=== PATIENT | female | born 2000 | race Caucasian/White ===

== ENCOUNTER 2022-08-07 11:59 | Outpatient (CLI) | payer OTHER ==
[2022-08-07 17:45] LABS: BASOPHILS # (AUTO) 0.1 10^3/uL (0.0-0.1); BASOPHILS % (AUTO) 0.7 %; EOSINOPHILS # (AUTO) 0.2 10^3/uL (0.0-0.7); EOSINOPHILS % (AUTO) 2.3 %; HCT - HEMATOCRIT 38.5 % (37.0-47.0); HGB - HEMOGLOBIN 11.7 g/dL (12.0-16.0); LYMPHOCYTES # (AUTO) 2.4 10^3/uL (1.5-3.5); LYMPHOCYTES % (AUTO) 34.5 %; MEAN CORPUSCULAR HEMOGLOBIN 24.8 pg (27.0-31.0); MEAN CORPUSCULAR HGB CONC 30.4 g/dL (32.0-36.0); MEAN CORPUSCULAR VOLUME 81.7 fL (81.0-99.0); MEAN PLATELET VOLUME 9.1 fL (7.9-10.8); MONOCYTES # (AUTO) 0.5 10^3/uL (0.0-1.0); MONOCYTES % (AUTO) 7.2 %; NEUTROPHILS # (AUTO) 3.9 10^3/uL (1.5-6.6); PLT - PLATELET COUNT 461 10^3/uL (130-450); RED BLOOD COUNT 4.71 10^6/uL (4.20-5.40); RED CELL DISTRIBUTION WIDTH 13.7 % (12.0-15.0); WHITE BLOOD COUNT 7.1 x10^3/uL (4.8-10.8)
[2022-08-07 18:11] LABS: % IRON SATURATION 6 % (20-50); ALBUMIN 3.8 g/dL (3.2-5.5); ALBUMIN/GLOBULIN RATIO 0.9 (1.0-2.2); ALKALINE PHOSPHATASE 45 IU/L (42-121); ALT ALANINE AMINOTRANSFERASE 10 IU/L (10-60); AST ASPARTATE AMINOTRANSFERASE 18 IU/L (10-42); BILIRUBIN,TOTAL 0.5 mg/dL (0.2-1.0); BUN - BLOOD UREA NITROGEN 12 mg/dL (6-20); CALCIUM 9.3 mg/dL (8.5-10.3); CARBON DIOXIDE - CO2 26 mmol/L (21-32); CHLORIDE 101 mmol/L (101-111); CHOL/HDL RATIO 2.9 (<4.4); CHOLESTEROL 178 mg/dL; CREATININE 0.8 mg/dL (0.4-1.0); CRP - C-REACTIVE PROTEIN 1.4 mg/dL (0-1.0); GFR - MDRD 90 (>89); GLUCOSE 89 mg/dL (70-100); HDL CHOLESTEROL 62 mg/dL; IRON 25 ug/dL (28-170); LDL CHOLESTEROL,CALCULATED 108 mg/dL; LDL/HDL RATIO 1.7 (<4.4); POTASSIUM 4.2 mmol/L (3.5-5.0); SODIUM 134 mmol/L (135-145); TOTAL IRON BINDING CAPACITY 413 ug/dL (250-450); TRANSFERRIN 295 mg/dL (192-382); TRIGLYCERIDES 40 mg/dL; VLDL CHOLESTEROL 8 mg/dL
[2022-08-07 18:20] LABS: THYROID STIMULATING HORMONE 2.24 uIU/mL (0.34-5.60)
[2022-08-07 18:24] LABS: FERRITIN 11.4 ng/mL (11.0-306.8)
== END 2022-08-07 12:00 | disposition home or self-care (01) ==
LOC: LAB.N 11:59
PROVIDERS: ATTEND Nurse Practitioner
DX: D64.9 Anemia, unspecified (principal); R53.83 Other fatigue; R76.8 Other specified abnormal immunological findings in serum; Z13.220 Encounter for screening for lipoid disorders; M25.561 Pain in right knee
CPT/HCPCS: 36415; 80053; 80061; 82728; 83540; 83721; 84443; 84466; 85025; 85651; 86140

== ENCOUNTER 2022-09-13 08:00 | Outpatient (CLI) | payer OTHER ==
[2022-09-13 15:09] LABS: BILIRUBIN,URINE NEGATIVE (NEGATIVE); GLUCOSE, URINE (UA) NEGATIVE (NEGATIVE); KETONES,URINE (UA) TRACE mg/dL (NEGATIVE); LEUKOCYTE ESTERASE, URINE NEGATIVE (NEGATIVE); NITRITE,URINE NEGATIVE (NEGATIVE); OCCULT BLOOD,URINE NEGATIVE (NEGATIVE); PH,URINE 6.5 PH (5.0-7.5); PROTEIN,URINE NEGATIVE (NEGATIVE); UROBILINOGEN,URINE 0.2 (NORMAL) E.U./dL (NORMAL)
[2022-09-13 15:18] LABS: CLARITY,URINE CLEAR (CLEAR)
[2022-09-13 15:30] LABS: RBC,URINE 0-5 /HPF (0-5); SQUAMOUS EPITHELIAL CELL,UR FEW Squamous (<= Few); WBC,URINE 0-3 /HPF (0-5)
[2022-09-13 15:31] LABS: BACTERIA,URINE Rare /HPF (None Seen); MUCUS,URINE Moderate Strands
== END 2022-09-13 23:59 | disposition home or self-care (01) ==
LOC: LAB.WC 08:00
PROVIDERS: ATTEND Obstetrics & Gynecology
DX: Z34.90 Encounter for supervision of normal pregnancy, unspecified, unspecified trimester (principal)
CPT/HCPCS: 81001; 87086

== ENCOUNTER 2022-09-21 10:49 | Outpatient (CLI) | payer OTHER ==
--- NOTE | 2022-09-22 10:11 | Ultrasound Report ---
PROCEDURE: OB First Trimester w/TV INDICATIONS: POSITIVE TEST OUTSIDE/PRIOR DATING DATA: Last menstrual period (LMP): 07/27/2022. LMP-based estimated date of delivery (ZAN): 05/03/2023. First dating scan (date and location): Today 09/21/22 Estimated date of delivery (ZAN) from first dating scan: 05/06/2023. TECHNIQUE: Real-time scanning was performed of the fetus and maternal pelvic organs, with image documentation. Endovaginal scanning was also performed to better visualize the fetus and maternal ovaries. COMPARISON: None FINDINGS: Intrauterine is present with heart rate 150 bpm. Cervical length is 4.7 cm Acorn-rump length is 1.34 cm corresponding to an ultrasound age of 7 weeks and 4 days. Or focal fluid is seen adjacent to the left ovary measuring up to 2.5 cm. IMPRESSION: Single living intrauterine at an ultrasound age of 7 weeks and 4 days. Subchorionic bleed m easuring 30 x 30 x 14 mm. Suspected left corpus luteum and perineal left adnexal fluid measuring up t o 2.5 cm. Attention on follow-up second trimester anatomy scan. Reviewed by: Branden Gu MD on 09/22/2022 10:10 AM PST Approved by: Branden Gu MD on 09/22/2022 10:10 AM PST Station ID: [id number]
== END 2022-09-21 10:50 | disposition home or self-care (01) ==
LOC: DI 10:49
PROVIDERS: ATTEND Obstetrics & Gynecology
DX: O20.8 Other hemorrhage in early pregnancy (principal); Z3A.01 Less than 8 weeks gestation of pregnancy

== ENCOUNTER 2022-10-24 12:21 | Outpatient (CLI) | payer OTHER ==
[2022-10-24 12:49] LABS: BASOPHILS % (AUTO) 0.3 %; EOSINOPHILS # (AUTO) 0.1 10^3/uL (0.0-0.7); EOSINOPHILS % (AUTO) 0.8 %; HCT - HEMATOCRIT 35.1 % (37.0-47.0); HGB - HEMOGLOBIN 11.1 g/dL (12.0-16.0); LYMPHOCYTES # (AUTO) 2.4 10^3/uL (1.5-3.5); LYMPHOCYTES % (AUTO) 27.7 %; MEAN CORPUSCULAR HEMOGLOBIN 24.5 pg (27.0-31.0); MEAN CORPUSCULAR HGB CONC 31.6 g/dL (32.0-36.0); MEAN CORPUSCULAR VOLUME 77.5 fL (81.0-99.0); MEAN PLATELET VOLUME 8.4 fL (7.9-10.8); MONOCYTES # (AUTO) 0.7 10^3/uL (0.0-1.0); MONOCYTES % (AUTO) 7.4 %; NEUTROPHILS # (AUTO) 5.6 10^3/uL (1.5-6.6); NEUTROPHILS % (AUTO) 63.2 %; PLT - PLATELET COUNT 342 10^3/uL (130-450); RED BLOOD COUNT 4.53 10^6/uL (4.20-5.40); RED CELL DISTRIBUTION WIDTH 15.6 % (12.0-15.0); WHITE BLOOD COUNT 8.8 x10^3/uL (4.8-10.8)
[2022-10-25 05:11] LABS: HBsAG SCREEN Negative (Negative)
[2022-10-25 07:10] LABS: RPR Non Reactive (Non Reactive); VARICELLA-ZOSTER AB IGG <135 index (Immune >165)
[2022-10-25 10:13] LABS: HCV AB Non Reactive (Non Reactive); HIV SCREEN 4TH GENERATION Non Reactive (Non Reactive)
== END 2022-10-24 12:22 | disposition home or self-care (01) ==
LOC: LAB 12:21
PROVIDERS: ATTEND Obstetrics & Gynecology
DX: Z34.90 Encounter for supervision of normal pregnancy, unspecified, unspecified trimester (principal)
CPT/HCPCS: 36415; 85025; 86592; 86762; 86787; 86803; 86850; 86900; 86901; 87340; 87389

== ENCOUNTER 2022-12-18 14:35 | Outpatient (CLI) | payer OTHER ==
--- NOTE | 2022-12-18 17:04 | Ultrasound Report ---
PROCEDURE: OB Detailed Eval INDICATIONS: SUPERVISION OF OUTSIDE/PRIOR DATING DATA: Last menstrual period (LMP): 07/27/2022. LMP-based estimated date of delivery (ZAN): 05/03/2023. First dating scan (date and location): 09/21/2022. Estimated date of delivery (ZAN) from first dating scan: 05/06/2023. The below data below was generated using the ultrasound ZAN of 05/06/2023 TECHNIQUE: Real-time scanning was performed of the fetus, with image documentation and biometric measurements. COMPARISON: OB ultrasound 10/09/2022 FINDINGS: General: A single living intrauterine gestation is present. Presentation: For Placenta: Placental position is posterior, without previa. Amniotic fluid index: 13 point cm, within normal limits for gestational age. heart rate: 144 beats per minute. Maternal cervical canal: 4.4 cm long; normal length is 2.5 cm or more. biometrics: Biparietal diameter: 4.6 cm 19 weeks 6 days Head circumference: 17.5 cm 20 weeks 0 days Abdominal circumference: 15.4 cm 20 weeks 4 days Femur length: 3.2 cm 19 weeks 6 days Estimated gestational age from initial scan: 20 weeks 1 day Composite gestational age from present scan: 20 weeks 1 day Estimated weight and percentile: 330 g 48th percentile Measurement variability in biometric dating: +/- 10 days from 12-20 weeks gestation, +/- 2 weeks from 20-30 weeks gestation, +/- 3 weeks at 30 weeks gestation or later. Anatomic survey: Neuro: Ventricles are normal at less than 10 mm. Cisterna magna is normal at 3-11 mm. Cerebellum i s normal in size and morphology. Nuchal skin fold: Not well evaluated Face: Nose and lips, facial profile are not well seen. Spine: No evidence for spina bifida. Heart: 4-chambered heart and ventricular outflow tracts are not well seen. Diaphragm: Diaphragm is intact. Stomach: Left-sided stomach is present. Kidneys: No hydronephrosis. Normal is less than 5 mm in 2nd trimester, less than 7 mm in 3rd trimester. Cord: 3 vessel cord has orthotopic insertion. Bladder: Normal in size. Extremities: All 4 extremities are visualized. Left paraovarian cyst is unchanged IMPRESSION: Single live intrauterine with ultrasound gestational age today of 20 weeks 1 day. heart, outflow tracts as well as facial features are not well seen, in addition to nuchal skin fold. Recommend follow-up ultrasound for further evaluation. Reviewed by: Mariana Zaragoza MD on 12/18/2022 5:03 PM PDT Approved by: Mariana Zaragoza MD on 12/18/2022 5:03 PM PDT Station ID: [id number]
== END 2022-12-18 14:36 | disposition home or self-care (01) ==
LOC: DI 14:35
PROVIDERS: ATTEND Obstetrics & Gynecology
DX: Z34.92 Encounter for supervision of normal pregnancy, unspecified, second trimester (principal)

== ENCOUNTER 2023-01-24 19:15 | Outpatient (CLI) | payer OTHER ==
--- NOTE | 2023-01-25 11:10 | Ultrasound Report ---
PROCEDURE: OB F/U or Repeat INDICATIONS: SUPERVISION OF . heart and outflow tracts and facial features were not w ell seen on the previous study OUTSIDE/PRIOR DATING DATA: Last menstrual period (LMP): 07/27/2022. LMP-based estimated date of delivery (ZAN): 05/03/2023. First dating scan (date and location): 09/21/22. Estimated date of delivery (ZAN) from first dating scan: 05/06/2023. The below data below was generated using the ultrasound ZAN of 05/06/2023 TECHNIQUE: Real-time scanning was performed of the fetus, with image documentation and biometric measurements. Endovaginal scanning: Not performed COMPARISON: Second trimester anatomy ultrasound dated 12/18/2022. FINDINGS: General: A single living intrauterine gestation is present. Presentation: Vertex Placenta: Placental position is posterior, without previa. Amniotic fluid index: 11.2 cm, within normal limits for gestational age. heart rate: 132 beats per minute. Maternal cervical canal: 3.3 cm long; normal length is 2.5 cm or more. Estimated gestational age from initial scan: 25 weeks 3 days Other: profile and nose and lips are within normal limits. Four-chamber view and LVOT within no rmal limits. RVOT suboptimally evaluated secondary to lie. However, and is likely within normal limits. IMPRESSION: 1. Living late second trimester intrauterine with no sonographic evidence of complications. 2. Patient presents to complete the anatomy study. RVOT suboptimally evaluated, but likely with in normal limits. Other structures are well-visualized, and within normal limits. Reviewed by: Jorge Ellison MD on 01/25/2023 11:09 AM PDT Approved by: Jorge Ellison MD on 01/25/2023 11:09 AM PDT Station ID: [id number]
== END 2023-01-24 19:16 | disposition home or self-care (01) ==
LOC: DI 19:15
PROVIDERS: ATTEND Obstetrics & Gynecology
DX: Z34.92 Encounter for supervision of normal pregnancy, unspecified, second trimester (principal)

== ENCOUNTER 2023-02-12 12:58 | Outpatient (CLI) | payer OTHER ==
[2023-02-12 17:43] LABS: HCT - HEMATOCRIT 34.2 % (37.0-47.0); HGB - HEMOGLOBIN 10.7 g/dL (12.0-16.0); MEAN CORPUSCULAR HEMOGLOBIN 26.8 pg (27.0-31.0); MEAN CORPUSCULAR HGB CONC 31.3 g/dL (32.0-36.0); MEAN CORPUSCULAR VOLUME 85.5 fL (81.0-99.0); MEAN PLATELET VOLUME 9.3 fL (7.9-10.8); RED CELL DISTRIBUTION WIDTH 16.1 % (12.0-15.0); WHITE BLOOD COUNT 12.7 x10^3/uL (4.8-10.8)
== END 2023-02-12 12:59 | disposition home or self-care (01) ==
LOC: LAB.N 12:58
PROVIDERS: ATTEND Obstetrics & Gynecology
DX: Z34.90 Encounter for supervision of normal pregnancy, unspecified, unspecified trimester (principal)
CPT/HCPCS: 36415; 82950; 85027

== ENCOUNTER 2023-02-15 10:39 | Outpatient (CLI) | payer OTHER | END 2023-02-15 10:40 | disposition home or self-care (01) | LOC: LAB 10:39 | PROVIDERS: ATTEND Obstetrics & Gynecology | DX: D64.9 Anemia, unspecified (principal) | CPT/HCPCS: 36415; 82728 ==

== ENCOUNTER 2023-02-19 17:59 | Emergency (ER) | payer OTHER ==
--- NOTE | 2023-02-19 18:06 | ED Physician Documentation ---
PD HPI ABD PAIN - Stated complaint Stated Complaint: DIZZY - Chief complaint Chief Complaint: Cardiac - History obtained from History obtained from: Patient - Additional information Additional information: She is a G1 at 30 weeks . Last week in the office her blood pressure was high and they were going to start monitoring it. Today she developed cold sweats, headache, and dizziness. She went to urgent care and subsequently went over to labor and delivery where baby looked okay on nonstress testing and referred here for further evaluation and treatment. There was a concern for bradycardia over there. PD PAST MEDICAL HISTORY - Allergies Allergies/Adverse Reactions: Allergies Allergy/AdvReac Type Severity Reaction Status Date / Time No Known Drug Allergies Allergy Verified 02/19/23 18:04 PD ED PE NORMAL - Vitals Vital signs reviewed: Yes - General General: Alert and oriented X 3, No acute distress, Well developed/nourished - HEENT HEENT: PERRL, EOMI - Neck Neck: Supple, no meningeal sign, No bony TTP - Cardiac Cardiac: No murmur, Other (Frequent PVCs on the monitor, with some irregularity on auscultation) - Respiratory Respiratory: No respiratory distress, Clear bilaterally - Abdomen Abdomen: Non tender - Neuro Neuro: Alert and oriented X 3, Normal speech Eye Opening: Spontaneous Motor: Obeys Commands Verbal: Oriented GCS Score: 15 - Psych Psych: Normal mood, Normal affect Results - Vitals Vitals: Vital Signs - 24 hr 02/19/23 02/19/23 02/19/23 18:01 18:08 18:27 Temperature 36.6 C Heart Rate 83 85 80 Respiratory 23 20 22 Rate Blood Pressure 136/95 H 134/90 H 118/69 O2 Saturation 99 99 97 02/19/23 18:43 Temperature Heart Rate 96 Respiratory 20 Rate Blood Pressure 103/60 O2 Saturation 97 Oxygen O2 Source Room air - Labs Labs: Laboratory Tests 02/19/23 02/19/23 18:01 18:01 WBC 13.1 H RBC 4.36 Hgb 11.7 L Hct 37.4 MCV 85.8 MCH 26.8 L MCHC 31.3 L RDW 15.5 H Plt Count 301 MPV 9.1 Neut # (Auto) 8.5 H Lymph # (Auto) 2.7 [place] # (Auto) 1.1 H Eos # (Auto) 0.1 Baso # (Auto) 0.1 Absolute Nucleated RBC 0.02 Nucleated RBC % 0.2 Sodium 134 L Potassium 4.0 Chloride 105 Carbon Dioxide 22 Anion Gap 7.0 BUN 10 Creatinine 0.6 Estimated GFR (MDRD) 124 Glucose 80 Calcium 8.9 Magnesium 2.0 Total Bilirubin 0.3 AST 23 ALT 15 Alkaline Phosphatase 42 Total Protein 7.1 Albumin 3.2 Globulin 3.9 Albumin/Globulin Ratio 0.8 L PD Medical Decision Making - ED course ED course: Blood pressure in the department was initially high but trended down and became 103/60 at the time of disposition. Her work-up was negative with CBC showing leukocytosis appropriate in and unremarkable CMP. Given the PVCs recommended she follow-up with her OB and consideration for echocardiography. Departure - Departure Disposition: Home, Self Care Clinical Impression: PVCs (premature ventricular contractions) Condition: Good Record reviewed to determine appropriate education?: Yes Instructions: Premature Ventricular Contract About Comments: You are seen today for a concerning episode, your blood pressure did trend down over time to 103/60 so I do not think it is directly necessarily related to your blood pressure. We also noted that you had frequent premature ventricular contractions, these are early beats of the heart which are generally benign but recommend you follow-up with Dr. Huynh on for blood pressure check and he may consider referring you for an echocardiogram. Return if worsening.
[2023-02-19 18:16] LABS: BASOPHILS # (AUTO) 0.1 10^3/uL (0.0-0.1); BASOPHILS % (AUTO) 0.8 %; EOSINOPHILS # (AUTO) 0.1 10^3/uL (0.0-0.7); EOSINOPHILS % (AUTO) 0.5 %; HCT - HEMATOCRIT 37.4 % (37.0-47.0); HGB - HEMOGLOBIN 11.7 g/dL (12.0-16.0); LYMPHOCYTES # (AUTO) 2.7 10^3/uL (1.5-3.5); LYMPHOCYTES % (AUTO) 20.4 %; MEAN CORPUSCULAR HEMOGLOBIN 26.8 pg (27.0-31.0); MEAN CORPUSCULAR HGB CONC 31.3 g/dL (32.0-36.0); MEAN CORPUSCULAR VOLUME 85.8 fL (81.0-99.0); MEAN PLATELET VOLUME 9.1 fL (7.9-10.8); MONOCYTES # (AUTO) 1.1 10^3/uL (0.0-1.0); MONOCYTES % (AUTO) 8.3 %; NEUTROPHILS # (AUTO) 8.5 10^3/uL (1.5-6.6); NEUTROPHILS % (AUTO) 65.2 %; NRBC ABSOLUTE COUNT (AUTO) 0.02 x10^3/uL; NUCLEATED RED BLOOD CELLS AUTO 0.2 /100WBC; PLT - PLATELET COUNT 301 10^3/uL (130-450); RED BLOOD COUNT 4.36 10^6/uL (4.20-5.40); RED CELL DISTRIBUTION WIDTH 15.5 % (12.0-15.0); WHITE BLOOD COUNT 13.1 x10^3/uL (4.8-10.8)
[2023-02-19] MEDS: PROCHLORPERAZINE 10 MG/2 ML VIAL IVP STA (18:16)
[2023-02-19 18:28] LABS: ALBUMIN 3.2 g/dL (3.2-5.5); ALBUMIN/GLOBULIN RATIO 0.8 (1.0-2.2); BILIRUBIN,TOTAL 0.3 mg/dL (0.2-1.0); CALCIUM 8.9 mg/dL (8.5-10.3); CREATININE 0.6 mg/dL (0.4-1.0); TOTAL PROTEIN 7.1 g/dL (6.7-8.2)
[2023-02-19 18:43] VITALS: BP 103/60
== END 2023-02-19 19:00 | disposition home or self-care (01) ==
LOC: ED 17:59
DX: O36.5930 Maternal care for other known or suspected poor fetal growth, third trimester, not applicable or unspecified (principal); Z3A.30 30 weeks gestation of pregnancy; I49.3 Ventricular premature depolarization
CPT/HCPCS: 36415; 80053; 83735; 85025; 96374; 99283

== ENCOUNTER 2023-02-21 15:04 | Outpatient (CLI) | payer OTHER ==
--- NOTE | 2023-02-21 16:43 | Ultrasound Report ---
PROCEDURE: OB F/U or Repeat INDICATIONS: UTERINE SIZE DATE DISCREPENCY OUTSIDE/PRIOR DATING DATA: Last menstrual period (LMP): 07/27/2022. LMP-based estimated date of delivery (ZAN): 05/03/2023. First dating scan (date and location): 09/21/2022. Estimated date of delivery (ZAN) from first dating scan: 05/06/2023. The below data below was generated using the ultrasound ZAN of 05/06/2023 TECHNIQUE: Real-time scanning was performed of the fetus, with image documentation and biometric measurements. Endovaginal scanning: Not performed. COMPARISON: None. FINDINGS: General: A single living intrauterine gestation is present. Presentation: Vertex Placenta: Placental position is posterior, without previa. Amniotic fluid index: 13.9 cm, 43rd percentile for gestational age. heart rate: 148 beats per minute. Maternal cervical canal: 5.4 cm long; normal length is 2.5 cm or more. biometrics: Biparietal diameter: 7.1 cm, 28 weeks 3 days Head circumference: 27.5 cm, 30 weeks 1 day Abdominal circumference: 25.3 cm, 29 weeks 3 days Femur length: 5.6 cm, 29 weeks 3 days Estimated gestational age from initial scan: 29 weeks 3 days Composite gestational age from present scan: 29 weeks 3 days Estimated weight and percentile: 1391 g, 39th percentile Measurement variability in biometric dating: +/- 10 days from 12-20 weeks gestation, +/- 2 weeks from 20-30 weeks gestation, +/- 3 weeks at 30 weeks gestation or more. Other: Not applicable. IMPRESSION: Single living intrauterine at 29 weeks 3 days, ZAN of 05/06/2023. Estimated weight of 1391 g, 39th percentile. Reviewed by: Zack Sanchez on 02/21/2023 4:41 PM PDT Approved by: Zack Sanchez on 02/21/2023 4:41 PM PDT Station ID: [id number]
== END 2023-02-21 15:05 | disposition home or self-care (01) ==
LOC: DI 15:04
PROVIDERS: ATTEND Obstetrics & Gynecology
DX: O26.843 Uterine size-date discrepancy, third trimester (principal); Z3A.29 29 weeks gestation of pregnancy

== ENCOUNTER 2023-03-21 11:05 | Emergency (ER) | payer OTHER ==
[2023-03-21] MEDS ORDERED: NIFEdipine ER 30 MG TABLET PO STA (11:44)
--- NOTE | 2023-03-21 11:45 | ED Physician Documentation ---
History of Present Illness - Stated complaint Stated Complaint: SWEATING/BLURRED VISION - Chief complaint Chief Complaint: Neuro - Additonal information Additional information: 22-year-old female G1, P0 presents to the emergency department for evaluation of near syncope. 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 There was no lapse in consciousness. She is also been having palpitations. heart rate at the bedside was 156. No loss of fluids or vaginal bleeding. Was seen several weeks ago for similar and has an echocardiogram pending at [facility] for 04 April. Patient is followed by Dr. Huynh with our OB group. Meds: Sulfasalazine, vitamins, folic acid. Past medical history is most significant for arthritis only. Patient is continuing to have movement. Patient's blood pressure in triage was initially 138/82. When I was evaluating the patient in the room while supine and still her blood pressure was 146/108. Review of Systems Constitutional: denies: Fever Eyes: reports: Reviewed and negative Ears: reports: Reviewed and negative Cardiac: reports: Palpitations Respiratory: reports: Reviewed and negative GI: reports: Reviewed and negative : reports: Reviewed and negative Skin: reports: Reviewed and negative Musculoskeletal: reports: Reviewed and negative Neurologic: reports: Near syncope, Headache PD PAST MEDICAL HISTORY - Past Medical History Past Medical History: Yes Musculoskeletal: Rheumatoid arthritis - Past Surgical History Past Surgical History: Yes Ortho: Other - Present Medications Home Medications: Ambulatory Orders Medication Instructions Recorded Confirmed Folic Acid 1 mg PO DAILY 03/21/23 03/21/23 Pnv No.95/Ferrous Fum/Folic AC 1 each PO DAILY 03/21/23 03/21/23 [ Tablet] sulfaSALAzine [Sulfasalazine] 1,500 mg PO DAILY 03/21/23 03/21/23 - Allergies Allergies/Adverse Reactions: Allergies Allergy/AdvReac Type Severity Reaction Status Date / Time No Known Drug Allergies Allergy Verified 03/21/23 11:12 - Social History Does the pt smoke?: No Smoking Status: Never smoker Does the pt drink ETOH?: No Does the pt have substance abuse?: No - Immunizations Immunizations are current?: No PD ED PE NORMAL - General General: Alert and oriented X 3, No acute distress, Well developed/nourished - HEENT HEENT: Atraumatic - Cardiac Cardiac: RRR, No murmur, Strong equal pulses, Other (Sinus rhythm on the monitor with frequent PVCs.) - Respiratory Respiratory: No respiratory distress - Abdomen Abdomen: Normal bowel sounds, Soft, Non tender (Palpable uterus above the level of the umbilicus.) - Back Back: No CVA TTP - Derm Derm: Normal color, Warm and dry, No rash - Extremities Extremities: No deformity, Normal ROM s pain, No edema - Neuro Neuro: Alert and oriented X 3, 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 No clonus.) Eye Opening: Spontaneous Motor: Obeys Commands Verbal: Oriented GCS Score: 15 Results - Vitals Vitals: Vital Signs - 24 hr 03/21/23 03/21/23 03/21/23 11:06 11:38 11:39 Temperature 36.8 C Heart Rate 90 95 Respiratory 18 Rate Blood Pressure 131/78 H 146/101 H 138/82 H O2 Saturation 100 03/21/23 03/21/23 03/21/23 11:48 11:53 12:05 Temperature 37.0 C Heart Rate 102 H 106 H Respiratory 18 Rate Blood Pressure 137/80 H 133/74 H 120/76 O2 Saturation 99 03/21/23 03/21/23 03/21/23 12:26 12:45 13:00 Temperature Heart Rate 89 92 90 Respiratory 15 23 22 Rate Blood Pressure 122/84 H 119/87 H 120/80 O2 Saturation 100 98 98 03/21/23 03/21/23 03/21/23 13:15 13:30 13:45 Temperature Heart Rate 87 87 88 Respiratory 17 20 21 Rate Blood Pressure 126/80 120/75 120/73 O2 Saturation 97 97 98 Oxygen O2 Source Room air - EKG (time done) 1141 EKG releavant findings:: EKG personally interpreted by author of this note. Relevant findings are: Rate: Rate (enter#) (92) Rhythm: NSR [place]: Normal Intervals: Normal CA QRS: Normal Ischemia: Normal ST segments Compare to prior EKG: Unchanged from prior EKG Computer interpretation: Agree with computer - Labs Labs: Laboratory Tests 03/21/23 03/21/23 03/21/23 11:40 11:40 11:40 WBC 11.6 H RBC 4.14 L Hgb 11.2 L Hct 36.1 L MCV 87.2 MCH 27.1 MCHC 31.0 L RDW 15.2 H Plt Count 256 MPV 9.1 Neut # (Auto) Not Reportable Lymph # (Auto) Not Reportable [place] # (Auto) Not Reportable Eos # (Auto) Not Reportable Baso # (Auto) Not Reportable Absolute Nucleated RBC Not Reportable Total Counted 100 Band Neuts % (Manual) 11 H Reactive Lymphs % (Man) 4 Abnorm Lymph % (Manual) 0 Myelocytes % 3 H Nucleated RBC % Not Reportable Neutrophils # (Manual) 7.7 H Lymphocytes # (Manual) 2.7 Monocytes # (Manual) 0.8 Eosinophils # (Manual) 0.0 Basophils # (Manual) 0.1 Differential Comment MANUAL DIFFERENTIAL Manual Slide Review Indicated RBC Morph Micro Appear 3+ ANISOCYTOSIS PT 11.6 INR 1.1 Sodium 132 L Potassium 3.9 Chloride 106 Carbon Dioxide 21 Anion Gap 5.0 L BUN 8 Creatinine 0.5 L Estimated GFR (MDRD) 153 Glucose 91 Calcium 9.0 Phosphorus 3.2 L Magnesium 1.6 L Total Bilirubin 0.2 AST 19 ALT 12 Alkaline Phosphatase 57 Total Protein 6.5 Albumin 3.3 Globulin 3.2 Albumin/Globulin Ratio 1.0 Lipase 20 Urine Color Urine Clarity Urine pH Ur Specific [place] Urine Protein Urine Glucose (UA) Urine Ketones Urine Occult Blood Urine Nitrite Urine Bilirubin Urine Urobilinogen Ur Leukocyte Esterase Ur Microscopic Review Urine Culture Comments Urine Creatinine Ur Total Protein Timed Protein/Creatinin Ratio 03/21/23 03/21/23 11:44 11:44 WBC RBC Hgb Hct MCV MCH MCHC RDW Plt Count MPV Neut # (Auto) Lymph # (Auto) [place] # (Auto) Eos # (Auto) Baso # (Auto) Absolute Nucleated RBC Total Counted Band [place] % (Manual) Reactive Lymphs % (Man) Abnorm Lymph % (Manual) Myelocytes % Nucleated RBC % Neutrophils # (Manual) Lymphocytes # (Manual) Monocytes # (Manual) Eosinophils # (Manual) Basophils # (Manual) Differential Comment Manual Slide Review RBC Morph Micro Appear PT INR Sodium Potassium Chloride Carbon Dioxide Anion Gap BUN Creatinine Estimated GFR (MDRD) Glucose Calcium Phosphorus Magnesium Total Bilirubin AST ALT Alkaline Phosphatase Total Protein Albumin Globulin Albumin/Globulin Ratio Lipase Urine Color YELLOW Urine Clarity CLEAR Urine pH 7.0 Ur Specific [place] 1.015 Urine Protein TRACE Urine Glucose (UA) NEGATIVE Urine Ketones NEGATIVE Urine Occult Blood NEGATIVE Urine Nitrite NEGATIVE Urine Bilirubin NEGATIVE Urine Urobilinogen 0.2 (NORMAL) Ur Leukocyte Esterase NEGATIVE Ur Microscopic Review NOT INDICATED Urine Culture Comments NOT INDICATED Urine Creatinine 200.4 Ur Total Protein Timed 30 Protein/Creatinin Ratio 0.1 PD Medical Decision Making - ED course Complexity details: reviewed results, re-evaluated patient, d/w patient ED course: 22-year-old female G1, P0 who is 34 weeks presents to the emergency department for evaluation of near syncope, cold sweats headache and dizziness. She also had what she describes as a very brief loss of vision lasting less than 2 seconds. Her initial blood pressure in triage was 138/82 but in the room while supine 146/108 raising the concern for preeclampsia. On evaluation she is nonfocal and does not have hyperreflexic responses. I initially called Dr. Jose OB at approx 114oam. In addition to our labs were also ordering an MTP ratio and she recommended 30 mg and nifedipine XL. She will be by to evaluate the patient. NST showed moderate variability with positive accelerations, no decelerations. There were no contractions. Ultimately the patient was seen by OB Dr. Ledbetter at approximately 1430. Because she had tolerated the nifedipine well patient will be prescribed nifedipine on discharge and OB has already done this. She is going to follow-up in 2 days at the OB clinic for a blood pressure check. Patient is scheduled to see cardiology on the which will be kept. Patient is also scheduled for follow-up NSTs and growth scans. On reevaluation the patient reports her headache is improved. Her blood pressure is 120/73 with a heart rate of 88. Occasionally we have seen PVCs on the monitor which likely accounts for the palpitations. She is discharged home in stable condition with usual emergent return precautions discussed for worsening symptoms Departure - Departure Disposition: 01 Home, Self Care Clinical Impression: Third trimester , Blood pressure check Headache Qualifiers: Headache type: unspecified Headache chronicity pattern: acute headache Intractability: not intractable Qualified Code(s): R51.9 - Headache, unspecified Condition: Stable Comments: You are seen today in the emergency department because you developed a headache had some sudden dizziness and diaphoresis. The NST of your baby today was normal. Your initial blood pressures when you presented to the emergency department were slightly elevated but after receiving nifedipine these were improved. Your labs today did not show any worrisome findings. You were seen by OB and the plan is for you to begin taking nifedipine as prescribed. You are to go to the women's health clinic on March 23 at 3 PM for blood pressure check. You do need to continue your cardiology appointment which is scheduled for 04 April. If at any point you find that you are having worsening symptoms, develop chest pain, shortness of air or have any other emergent concerns do not hesitate to return immediately to the emergency department Forms: PCP List
[2023-03-21 11:51] LABS: BASOPHILS % (AUTO) 0.7 %; EOSINOPHILS % (AUTO) 1.2 %; HCT - HEMATOCRIT 36.1 % (37.0-47.0); HGB - HEMOGLOBIN 11.2 g/dL (12.0-16.0); LYMPHOCYTES % (AUTO) 19.3 %; MEAN CORPUSCULAR HEMOGLOBIN 27.1 pg (27.0-31.0); MEAN CORPUSCULAR VOLUME 87.2 fL (81.0-99.0); MEAN PLATELET VOLUME 9.1 fL (7.9-10.8); PLT - PLATELET COUNT 256 10^3/uL (130-450); RED BLOOD COUNT 4.14 10^6/uL (4.20-5.40); RED CELL DISTRIBUTION WIDTH 15.2 % (12.0-15.0); WHITE BLOOD COUNT 11.6 x10^3/uL (4.8-10.8)
[2023-03-21 11:53] LABS: INR 1.1 (0.8-1.2); PT - PROTHROMBIN TIME 11.6 secs (9.9-12.6)
[2023-03-21 11:55] LABS: SLIDE REVIEW? Indicated
[2023-03-21 12:01] LABS: BILIRUBIN,URINE NEGATIVE (NEGATIVE); GLUCOSE, URINE (UA) NEGATIVE (NEGATIVE); KETONES,URINE (UA) NEGATIVE (NEGATIVE); LEUKOCYTE ESTERASE, URINE NEGATIVE (NEGATIVE); NITRITE,URINE NEGATIVE (NEGATIVE); OCCULT BLOOD,URINE NEGATIVE (NEGATIVE); PROTEIN,URINE TRACE mg/dL (NEGATIVE); UROBILINOGEN,URINE 0.2 (NORMAL) E.U./dL (NORMAL)
[2023-03-21 12:01] LABS: ALBUMIN 3.3 g/dL (3.2-5.5); BILIRUBIN,TOTAL 0.2 mg/dL (0.2-1.0); CREATININE 0.5 mg/dL (0.6-1.3); MAGNESIUM 1.6 mg/dL (1.7-2.3); PHOSPHORUS 3.2 mg/dL (3.7-7.2); POTASSIUM 3.9 mmol/L (3.5-4.5); TOTAL PROTEIN 6.5 g/dL (6.4-8.9)
[2023-03-21 12:02] LABS: CLARITY,URINE CLEAR (CLEAR)
[2023-03-21 12:11] LABS: CREATININE,URINE 200.4 mg/dL; PROTEIN/CREATININE RATIO,URINE 0.1 (<=0.2)
[2023-03-21 12:14] LABS: ABNORMAL LYMPHS % (MANUAL) 0 %
[2023-03-21 12:20] LABS: BAND NEUTROPHILS % (MANUAL) 11 %; BASOPHILS # (MANUAL) 0.1 10^3/uL (0-0.1); BASOPHILS % (MANUAL) 1 %; DIFFERENTIAL COMMENT MANUAL DIFFERENTIAL; LYMPHOCYTES # (MANUAL) 2.7 10^3/uL (1.5-3.5); LYMPHOCYTES % (MANUAL) 19 %; MONOCYTES # (MANUAL) 0.8 10^3/uL (0.0-1.0); MYELOCYTES % (MANUAL) 3 %; NEUTROPHILS # (MANUAL) 7.7 10^3/uL (1.5-6.6); RBC MORPHOLOGY (MULTIPLE) 3+ ANISOCYTOSIS (NORMAL); REACTIVE LYMPHS % (MANUAL) 4 %
[2023-03-21] MEDS ORDERED: SODIUM CHLORIDE 0.9% 1,000 ML IV STA (13:07)
[2023-03-21] MEDS ORDERED: ACETAMINOPHEN 325 MG TABLET PO STA (13:08)
--- NOTE | 2023-03-21 14:16 | PROCEDURE REPORT ---
- HPI Diagnosis/Indication for NST: Gestational Hypertension Vital Signs Temperature 98.2 F 03/21/23 11:06 Heart Rate 90 03/21/23 11:06 Respiratory Rate 18 03/21/23 11:06 Blood Pressure 131/78 H 03/21/23 11:06 O2 Saturation 100 03/21/23 11:06 Temperature 98.6 F 03/21/23 11:53 Heart Rate 88 03/21/23 13:45 Respiratory Rate 21 03/21/23 13:45 Blood Pressure 120/73 03/21/23 13:45 O2 Saturation 98 03/21/23 13:45 If not protocol: Oxygen Flow, liters/minute - NST Procedure EFM: 140s, moderate variability, positive accelerations, no decelerations [place]: no contractions - Results and Plan Findings/Impression: 22yo at 33.6w with gestational hypertension - NST reactive - Given nifedipine 30mg XR in ED and tolerated well, will prescribe - Follow up 2d 03/23 1500 for BP check - Cardiology appt scheduled 04/04 - Repeat growth scan ordered - Schedule for NST/BPP
[2023-03-21 14:55] VITALS: BP 126/73
== END 2023-03-21 15:05 | disposition home or self-care (01) ==
LOC: ED 11:05
DX: O16.3 Unspecified maternal hypertension, third trimester (principal); O99.891 Other specified diseases and conditions complicating pregnancy; R00.2 Palpitations; R55 Syncope and collapse; Z3A.34 34 weeks gestation of pregnancy
CPT/HCPCS: 36415; 80053; 81003; 82570; 83690; 83735; 84100; 84156; 85025; 85610; 93005; 99283; 99284; A9270; 81001; 87086

== ENCOUNTER 2023-03-26 13:54 | Outpatient (CLI) | payer OTHER ==
[2023-03-26 14:18] VITALS: BP 100/59
--- NOTE | 2023-03-26 15:07 | PROCEDURE REPORT ---
- HPI Current EDU 05/03/23 Gestation 34 Weeks and 4 Days 1 Para 0 Vital Signs Temperature 98.2 F 03/26/23 14:10 Heart Rate 95 03/26/23 14:10 Respiratory Rate 16 03/26/23 14:10 Blood Pressure 100/59 L 03/26/23 14:10 Temperature 98.2 F 03/26/23 14:10 Heart Rate 95 03/26/23 14:10 Respiratory Rate 16 03/26/23 14:10 Blood Pressure 100/59 L 03/26/23 14:10 O2 Saturation If not protocol: Oxygen Flow, liters/minute - NST Procedure NST Procedure Start Date 03/26/23 Start Time 14:08 Stop Time 14:38 Vibroacoustic Stimulation Used No Patient States Movement Yes - Results and Plan Plan: Patient is a 22-year-old G1, P0 at 34 weeks 4 days gestation here for scheduled NST. NST Performed 03/26/2023 NST Read 03/26/2023 FHT: 140 bpm baseline, moderate variability, accelerations present, no decelerations. Reactive NST Faxon: Quiescent Diagnosis 34 weeks gestation Gestational hypertension Continue with twice-weekly NST.
== END 2023-03-26 14:45 | disposition home or self-care (01) ==
LOC: WFO 13:54 → FBP 13:55 → WFO 14:45
PROVIDERS: ATTEND Obstetrics & Gynecology
DX: O13.3 Gestational [pregnancy-induced] hypertension without significant proteinuria, third trimester (principal); Z3A.34 34 weeks gestation of pregnancy
CPT/HCPCS: 59025

== ENCOUNTER 2023-03-29 13:52 | Outpatient (CLI) | payer OTHER ==
[2023-03-29 14:16] VITALS: BP 121/77
--- NOTE | 2023-03-29 15:41 | PROCEDURE REPORT ---
- HPI Diagnosis/Indication for NST: Gestational Hypertension Current EDU 05/03/23 Gestation 35 Weeks and 0 Days 1 Para 0 Vital Signs Temperature 98.2 F 03/29/23 14:02 Heart Rate 97 03/29/23 14:02 Respiratory Rate 16 03/29/23 14:02 Blood Pressure 121/77 03/29/23 14:02 Temperature 98.2 F 03/29/23 14:02 Heart Rate 97 03/29/23 14:02 Respiratory Rate 16 03/29/23 14:02 Blood Pressure 121/77 03/29/23 14:02 O2 Saturation If not protocol: Oxygen Flow, liters/minute - NST Procedure NST Procedure Start Date 03/29/23 Start Time 14:00 Stop Time 14:50 Vibroacoustic Stimulation Used No Patient States Movement Yes 135 mod yogesh + A cells no D cells reactive - Results and Plan Findings/Impression: reactive and reassuring NST Plan: D/C home and continue scheduled ANC
== END 2023-03-29 15:09 | disposition home or self-care (01) ==
LOC: WFO 13:52 → FBP 13:54 → WFO 15:09
PROVIDERS: ATTEND Obstetrics & Gynecology
DX: O13.3 Gestational [pregnancy-induced] hypertension without significant proteinuria, third trimester (principal); Z3A.35 35 weeks gestation of pregnancy
CPT/HCPCS: 59025

== ENCOUNTER 2023-04-02 13:50 | Outpatient (CLI) | payer OTHER ==
[2023-04-02 14:20] VITALS: BP 131/83
--- NOTE | 2023-04-03 10:55 | PROCEDURE REPORT ---
- HPI Diagnosis/Indication for NST: Gestational Hypertension Current EDU 05/03/23 Gestation 35 Weeks and 4 Days 1 Para 0 Vital Signs Temperature 98.2 F 04/02/23 14:12 Heart Rate 94 04/02/23 14:12 Respiratory Rate 16 04/02/23 14:12 Blood Pressure 131/83 H 04/02/23 14:12 Temperature 98.2 F 04/02/23 14:12 Heart Rate 94 04/02/23 14:12 Respiratory Rate 16 04/02/23 14:12 Blood Pressure 131/83 H 04/02/23 14:12 O2 Saturation If not protocol: Oxygen Flow, liters/minute - NST Procedure NST Procedure Start Date 04/02/23 Start Time 13:58 Stop Time 14:37 Vibroacoustic Stimulation Used No Patient States Movement Yes 35+4 weeks, NST for gestational hypertension 145, moderate variability, +accels, no decels reactive NST - Results and Plan Plan: Patient has follow up scheduled with office and has pre-eclampsia precautions.
== END 2023-04-02 14:40 | disposition home or self-care (01) ==
LOC: WFO 13:50 → FBP 13:52 → WFO 14:40
PROVIDERS: ATTEND Obstetrics & Gynecology Obstetrics
DX: O13.3 Gestational [pregnancy-induced] hypertension without significant proteinuria, third trimester (principal); Z3A.35 35 weeks gestation of pregnancy
CPT/HCPCS: 59025

== ENCOUNTER 2023-04-05 13:53 | Outpatient (CLI) | payer OTHER ==
[2023-04-05 14:14] VITALS: BP 132/83; O2SAT 100
--- NOTE | 2023-04-05 14:25 | PROCEDURE REPORT ---
- HPI Diagnosis/Indication for NST: Gestational Hypertension Vital Signs Temperature 97.9 F 04/05/23 14:08 Heart Rate 96 04/05/23 14:08 Respiratory Rate 17 04/05/23 14:08 Blood Pressure 132/83 H 04/05/23 14:08 O2 Saturation 100 04/05/23 14:08 Temperature 97.9 F 04/05/23 14:08 Heart Rate 96 04/05/23 14:08 Respiratory Rate 17 04/05/23 14:08 Blood Pressure 132/83 H 04/05/23 14:08 O2 Saturation 100 04/05/23 14:08 If not protocol: Oxygen Flow, liters/minute - NST Procedure NST Procedure Start Time 13:58 Stop Time 14:37 36 week NST for gestational hypertension 135, moderate variability, +accels, no decels Reactive NST
== END 2023-04-05 14:30 | disposition home or self-care (01) ==
LOC: WFO 13:53 → FBP 13:54 → WFO 14:30
PROVIDERS: ATTEND Obstetrics & Gynecology Obstetrics
DX: O13.3 Gestational [pregnancy-induced] hypertension without significant proteinuria, third trimester (principal); Z3A.36 36 weeks gestation of pregnancy
CPT/HCPCS: 59025

== ENCOUNTER 2023-04-09 16:06 | Outpatient (CLI) | payer OTHER ==
[2023-04-09 16:25] VITALS: BP 126/80
== END 2023-04-09 16:40 | disposition home or self-care (01) ==
LOC: WFO 16:06 → FBP 16:08 → WFO 16:40
PROVIDERS: ATTEND Obstetrics & Gynecology
DX: O13.3 Gestational [pregnancy-induced] hypertension without significant proteinuria, third trimester (principal); Z3A.36 36 weeks gestation of pregnancy; Z79.899 Other long term (current) drug therapy
CPT/HCPCS: 59025

== ENCOUNTER 2023-04-09 18:22 | Outpatient (CLI) | payer OTHER ==
--- NOTE | 2023-04-09 18:51 | PROCEDURE REPORT ---
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
--- NOTE | 2023-04-10 11:39 | Ultrasound Report ---
PROCEDURE: OB Biophysical Profile INDICATIONS: GESTATIONAL HYPERTENSION OUTSIDE/PRIOR DATING DATA: Last menstrual period (LMP): 07/27/2022. LMP-based estimated date of delivery (ZAN): 05/03/2023. First dating scan (date and location): 09/21/2022, physician's office. Estimated date of delivery (ZAN) from first dating scan: 05/06/2023. The below data below was generated using the ultrasound ZAN of 05/06/2023 TECHNIQUE: Real-time scanning was performed of the fetus, with image documentation and biometric charlie surements. Biophysical profile was also obtained. Endovaginal scanning: Not performed COMPARISON: 02/21/2023 FINDINGS: General: A single living intrauterine gestation is present. Presentation: Vertex Placenta: Placental position is posterior and frontal, without previa. Amniotic fluid index: 14.0 cm, within normal limits for gestational age. heart rate: 171 beats per minute. Maternal cervical canal: 3.14 cm long; normal length is 2.5 cm or more. biometrics: Biparietal diameter: 8.56 cm, 34 weeks 4 days Head circumference: 32.8 cm, 37 weeks 2 days Abdominal circumference: 33.4 cm, 37 weeks 2 days Femur length: 6.8 cm, 35 weeks 0 days Estimated gestational age from initial scan: 36 weeks 1 day Composite gestational age from present scan: 36 weeks 0 days Estimated weight and percentile: 2935 g, 60th percentile Measurement variability in biometric dating: +/- 10 days from 12-20 weeks gestation, +/- 2 weeks from 20-30 weeks gestation, +/- 3 weeks at 30 weeks gestation or later. Biophysical profile: Tone: 2 points. Movement: 2 points. Respiration: 2 points. Largest pocket of fluid: 2 points. Umbilical artery Doppler: 2.93, 2.50, 2.52 IMPRESSION: 1. Living third trimester intrauterine with no sonographic evidence of complications. Imani l interval growth. Current ultrasound age is 1 day less than clinical age based on first trimester ul trasound. 2. Normal ultrasound biophysical profile, 8 out of 8. 3. Normal cord Dopplers. Reviewed by: Jorge Ellison MD on 04/10/2023 11:38 AM PDT Approved by: Jorge Ellison MD on 04/10/2023 11:38 AM PDT Station ID: [id number]
== END 2023-04-09 18:23 | disposition home or self-care (01) ==
LOC: DI 18:22
PROVIDERS: ATTEND Obstetrics & Gynecology
DX: O13.3 Gestational [pregnancy-induced] hypertension without significant proteinuria, third trimester (principal); Z3A.36 36 weeks gestation of pregnancy

== ENCOUNTER 2023-04-12 14:01 | Outpatient (CLI) | payer OTHER ==
[2023-04-12 14:21] VITALS: BP 131/75
--- NOTE | 2023-04-12 16:53 | PROCEDURE REPORT ---
- HPI Diagnosis/Indication for NST: Gestational Hypertension Current EDU 05/03/23 Gestation 37 Weeks and 0 Days 1 Para 0 Vital Signs Temperature 97.9 F 04/12/23 14:17 Heart Rate 87 04/12/23 14:17 Respiratory Rate 16 04/12/23 14:17 Blood Pressure 131/75 H 04/12/23 14:17 Temperature 97.9 F 04/12/23 14:17 Heart Rate 87 04/12/23 14:17 Respiratory Rate 16 04/12/23 14:17 Blood Pressure 131/75 H 04/12/23 14:17 O2 Saturation If not protocol: Oxygen Flow, liters/minute - NST Procedure NST Procedure Start Date 04/12/23 Start Time 14:16 Stop Time 14:37 Vibroacoustic Stimulation Used No Patient States Movement Yes 115 mod yogesh + A cells no D cells reactive - Results and Plan Findings/Impression: reassuring status BP not severe - 131/75 OK to D/C home with precautions Plan: D/C home with precautions
== END 2023-04-12 14:46 | disposition home or self-care (01) ==
LOC: WFO 14:01 → FBP 14:03 → WFO 14:46
PROVIDERS: ATTEND Obstetrics & Gynecology
DX: O13.3 Gestational [pregnancy-induced] hypertension without significant proteinuria, third trimester (principal); Z3A.37 37 weeks gestation of pregnancy
CPT/HCPCS: 59025

== ENCOUNTER 2023-04-16 11:09 | Inpatient (IN) | payer OTHER ==
[2023-04-16] MEDS ORDERED: NIFEdipine 10 MG CAPSULE PO PRN (11:36)
[2023-04-16] MEDS ORDERED: METHYLERGONOVINE 0.2 MG/ML VIAL IM PRN (11:36)
[2023-04-16] MEDS ORDERED: LABETALOL 20 MG/4 ML SYRINGE IVP PRN ×3 (11:36)
[2023-04-16] MEDS ORDERED: miSOPROStoL 200 MCG TABLET BC PRN (11:36)
[2023-04-16] MEDS ORDERED: hydrALAZINE INJ 20 MG/ML VIAL IVP PRN ×2 (11:36)
[2023-04-16] MEDS ORDERED: CARBOPROST TROMETHAMINE 250 MCG/ML AMP IM PRN (11:36)
[2023-04-16] MEDS ORDERED: fentaNYL 100 MCG/2 ML VIAL IVP PRN (11:36)
[2023-04-16] MEDS ORDERED: lidocaine 1% 20 ML MDV ID PRN (11:36)
[2023-04-16] MEDS ORDERED: TERBUTALINE 1 MG/ML VIAL SUBQ PRN (11:36)
[2023-04-16] MEDS ORDERED: miSOPROStoL 200 MCG TABLET PR PRN (11:36)
[2023-04-16] MEDS ORDERED: LACTATED RINGERS 1,000 ML IV PRN (11:36)
[2023-04-16] MEDS ORDERED: TRANEXAMIC ACID IN NACL 1,000 MG/100 ML BAG IV PRN (11:36)
[2023-04-16] MEDS ORDERED: OXYTOCIN 10 UNIT/ML VIAL IM PRN (11:36)
[2023-04-16] MEDS ORDERED: SODIUM CHLORIDE FLUSH 0.9% 10 ML SYRINGE IVP PRN (11:36)
[2023-04-16] MEDS ORDERED: OXYTOCIN/SODIUM CHLORIDE 500 ML IV PRN (11:36)
--- NOTE | 2023-04-16 11:38 | HISTORY & PHYSICAL EXAMINATION ---
Admit History - : 1 Parity: 0 Complications This : positive: induced HTN, Other (Palpitations) Smoking Status: Never smoker - Mother's Labs Mother's Blood Type: positive: A Mother's RH: positive: Positive GBS: positive: Group B Step Negative Rubella Status: positive: Non-immune - Other Maternal History Other Maternal History: HPI: Patient is a 20-year-old at 37 weeks 4 days gestation here for induction of labor . She has good movement. Denies loss of fluid. No MCDONALD/BV or RUQP. No vaginal bleeding. Denies nausea and vomiting. Denies urinary urgency or dysuria. All other symptoms reviewed and were negative except per HPI. Course LMP: 07/27/2022 ZAN by LMP:05/03/2023 Initial U/S:09/21/2022 @ 7w4d( ZAN 05/06/23) c/w LMP FINAL ZAN:05/03/2023 Pre- Weight:136.0 BMI: 22.71 Problems: - Gestational hypertension - PVCs: Cardiology referral completed. Normal EKG and ECHO. Recommended follow up, but likely related and will hopefully resolve. - Rubella NON-immune - Varicella NON-immune - Iron deficiency anemia- four infusions -IOL at 37 weeks. A pos Rubella equivocal VZV:non immune Genetic testing: NIPT Negative XX 11/03/22. Will need AFP at 16 weeks. reminded 12/07- not completed 02/01-orders removed FAS: 12/18 EFW 330g, 48th%tile, Placenta Posterior, 3-vessel cord, normal MIKEY.- heart, outflow tracts, facial features, nuchal skin fold not weel seen. F/U ordered 01/02- 01/24- Not worried about limited view of ultrasounds as she was told it was most likely normal. Will look again if third trimester ultrasound if indicated, but does not want an additional attempt now. Growth US 02/21/23- 1391g 39th%ile Glucola- 119 TDAP 02/01 H/H 36.1; 11.2 PLT 256 GBS @ 35+1wks collected 03/30 HSV: Denies in self and partner. Breast pump Rx 02/01 Baseline EPDS: 0 MOD:37-week IOL pp contraception:Likely Depo-Provera pap: 10/12/22- Normal Initial GC/CT: 10/12/22- negative PMH Anemia Positive HLA B27 Raynaud's phenomenon Rheumatoid arthritis? Granulomatosis Cardiac palpitations PSH Organ teeth removal Right and left ankle surgery OB History G1, P0 SH Denies tobacco, alcohol, drugs. Family History Mother: Anxiety, impetigo, depression, thyroid disorder Maternal grandfather: Anxiety, depression, hypertension Maternal grandmother: Arthritis Paternal uncle: Anxiety, depression, thyroid cancer, diabetes Maternal aunt: Thyroid disorder, hypertension, diabetes, depression, anxiety Allergies No known drug allergies Medications Nifedipine 30 mg once a day Folic acid 1 mg Ferrous sulfate vitamins Physical exam: General: Alert, oriented, no acute distress Head: Normal cephalic atraumatic Eyes: PERRLA, extraocular motions intact. Respiratory: Normal rate of respiration. No accessory muscle use, normal respiratory effort. Cardiovascular: Regular rate and rhythm Abdomen: Gravid, nontender, nondistended Extremities: Normal range of motion Neuro: Oriented x3. Normal movements Psych: Appropriate mood and affect. Normal judgment and insight SVE: 0/0/-3 FHT: 155 bpm baseline, moderate variability, accelerations present, no decelerations. [place]: Irregular Plan 22-year-old G1, P0 at 37 weeks 4 days gestation admitted for induction of labor secondary to gestational hypertension 1. Induction of labor -Admit to L&D for observation, however labs, -Will start cervical ripening with misoprostol 25 mcg PV every 4 hours 2. 37 weeks gestation 3. Gestational hypertension 4. Palpitations -Evaluated by cardiology. No identified issue. Will follow up 5. Rubella nonimmune -Vaccinate 6. Varicella nonimmune -Vaccinate - NST Procedure NST Procedure Start Time 16:13 Stop Time 16:46 Meds/Allgy - Home Medications Home Medications: Ambulatory Orders Medication Instructions Recorded Confirmed Folic Acid 1 mg PO DAILY 03/21/23 03/21/23 Pnv No.95/Ferrous Fum/Folic AC 1 each PO DAILY 03/21/23 03/21/23 [ Tablet] sulfaSALAzine [Sulfasalazine] 1,500 mg PO DAILY 03/21/23 03/21/23 - Allergies Allergies/Adverse Reactions: Allergies Allergy/AdvReac Type Severity Reaction Status Date / Time No Known Drug Allergies Allergy Verified 03/21/23 11:12 Plan for Labor - Plan For Labor I expect patient to be DC'd or transferred within 96 hours.: Yes
[2023-04-16 12:28] LABS: BASOPHILS # (AUTO) 0.1 10^3/uL (0.0-0.1); BASOPHILS % (AUTO) 0.8 %; EOSINOPHILS # (AUTO) 0.2 10^3/uL (0.0-0.7); EOSINOPHILS % (AUTO) 2.6 %; HCT - HEMATOCRIT 36.8 % (37.0-47.0); HGB - HEMOGLOBIN 11.8 g/dL (12.0-16.0); LYMPHOCYTES % (AUTO) 21.4 %; MEAN CORPUSCULAR HEMOGLOBIN 27.6 pg (27.0-31.0); MEAN CORPUSCULAR HGB CONC 32.1 g/dL (32.0-36.0); MEAN CORPUSCULAR VOLUME 86.2 fL (81.0-99.0); MEAN PLATELET VOLUME 9.3 fL (7.9-10.8); MONOCYTES # (AUTO) 0.9 10^3/uL (0.0-1.0); MONOCYTES % (AUTO) 9.2 %; NEUTROPHILS # (AUTO) 5.7 10^3/uL (1.5-6.6); NEUTROPHILS % (AUTO) 62.3 %; PLT - PLATELET COUNT 261 10^3/uL (130-450); RED BLOOD COUNT 4.27 10^6/uL (4.20-5.40); RED CELL DISTRIBUTION WIDTH 15.8 % (12.0-15.0); WHITE BLOOD COUNT 9.2 x10^3/uL (4.8-10.8)
[2023-04-16] MEDS: LACTATED RINGERS 1,000 ML IV SCH ×2 (12:39→22:35)
[2023-04-16] MEDS: SODIUM CHLORIDE FLUSH 0.9% 10 ML SYRINGE IVP SCH (12:39)
[2023-04-16 12:40] LABS: ALBUMIN 3.3 g/dL (3.2-5.5); ALBUMIN/GLOBULIN RATIO 1.1 (1.0-2.2); BILIRUBIN,TOTAL 0.2 mg/dL (0.2-1.0); CALCIUM 9.3 mg/dL (8.5-10.3); CREATININE 0.4 mg/dL (0.6-1.3); POTASSIUM 3.6 mmol/L (3.5-4.5); TOTAL PROTEIN 6.2 g/dL (6.4-8.9)
[2023-04-16] MEDS: miSOPROStoL 100 MCG TABLET VG SCH ×2 (12:46→16:46)
[2023-04-16 15:56] LABS: CREATININE,URINE 77.4 mg/dL; PROTEIN/CREATININE RATIO,URINE 0.1 (<=0.2)
--- NOTE | 2023-04-16 22:10 | PROVIDER PROGRESS NOTE ---
Labor Progress Note - Uterine Monitoring Uterine Monitoring Mode: positive: External toco Contraction Frequency (min/apart): 1-3 Contraction Intensity: positive: Moderate Uterine Resting Tone: positive: Soft - Monitoring Monitor Mode: positive: External ultrasound Heart Rate Baseline: 145 Heart Rate Variability: positive: Moderate (6-25 bmp) Accelerations: positive: Present, 15x15 Decelerations: positive: None Strip Review: positive: Category I - Labor Progress Note Labor Progress Note/Additional Text: Perez well with misoprostol, now with second dose. Very regular contractions, but as long as category 1, and continue to monitor. If frequent at next dose, can hold.
[2023-04-17] MEDS: miSOPROStoL 100 MCG TABLET VG SCH ×3 (02:57→13:51)
[2023-04-17] MEDS: LACTATED RINGERS 1,000 ML IV SCH ×2 (05:55→20:00)
--- NOTE | 2023-04-17 09:35 | PROVIDER PROGRESS NOTE ---
Labor Progress Note - Uterine Monitoring Uterine Monitoring Mode: positive: External toco Contraction Intensity: positive: Mild to moderate - Monitoring Heart Rate Variability: positive: Moderate (6-25 bmp) Accelerations: positive: Present, 15x15 Decelerations: positive: None Strip Review: positive: Category I - Vaginal Exam Dilation (in cm): 2 Effacement (%): 50 Station: -3 Cervical Position: Midposition - Labor Progress Note Labor Progress Note/Additional Text: Cervical ripening balloon placed. 60 mL placed in uterine balloon, 30 mL in vaginal balloon. Discussed plan of care and will start Pitocin if contractions are spacing out. Discussed pain management options. Patient would like to start with nitrous oxide.Patient has rheumatoid arthritis for which she takes sulfa. She has swollen right knee. Discussed labor positions and patient will let us know what is comfortable.
[2023-04-17] MEDS: SODIUM CHLORIDE FLUSH 0.9% 10 ML SYRINGE IVP SCH ×2 (13:51→13:52)
[2023-04-17] MEDS ORDERED: OXYTOCIN/SODIUM CHLORIDE 500 ML IV SCH (15:00)
--- NOTE | 2023-04-17 15:19 | PROVIDER PROGRESS NOTE ---
Labor Progress Note - Uterine Monitoring Uterine Monitoring Mode: positive: External toco Contraction Frequency (min/apart): 2 minutes Contraction Intensity: positive: Mild to moderate Uterine Resting Tone: positive: Soft - Monitoring Monitor Mode: positive: External ultrasound Heart Rate Variability: positive: Minimal (0-5 bpm) Accelerations: positive: Present, 15x15 Decelerations: positive: None Strip Review: positive: Category I - Vaginal Exam Dilation (in cm): 4 Effacement (%): 50 - Labor Progress Note Labor Progress Note/Additional Text: Patient progressing. On Pitocin 2. AROM with small amount of Blood-tinged fluid. wellbeing reassuring. Reviewed pain management options.
[2023-04-17] MEDS ORDERED: ROPIVACAINE 0.2% 200 MG/100 ML BAG EP ONE (17:22)
[2023-04-17] MEDS ORDERED: LIDOCAINE 2%-EPI 1:100000 20 ML MDV ONE (17:22)
[2023-04-17] MEDS ORDERED: ePHEDrine 50 MG/ML VIAL IVP PRN (17:44)
[2023-04-17] MEDS ORDERED: diphenhydrAMINE INJ 50 MG/ML VIAL IVP PRN (17:44)
[2023-04-17] MEDS ORDERED: ONDANSETRON 4 MG/2 ML VIAL IVP PRN (17:44)
[2023-04-17] MEDS ORDERED: ROPIVACAINE 0.2% 200 MG/100 ML BAG EP PRN (17:44)
[2023-04-17] MEDS ORDERED: METOCLOPRAMIDE 10 MG/2 ML VIAL IVP PRN (17:44)
[2023-04-17] MEDS ORDERED: NALBUPHINE 10 MG/ML AMP IVP PRN (17:44)
[2023-04-17] MEDS ORDERED: NALOXONE 0.4 MG/ML VIAL IVP PRN (17:44)
--- NOTE | 2023-04-17 17:44 | ANESTHESIA ---
Pre-Anesthesia VS, & Labs - Diagnosis active labor - Procedure labor epidural Vital Signs: Temp Pulse Resp BP Pulse Ox O2 Flow Rate 37.1 C 90 16 122/84 H 04/16/23 11:28 04/16/23 11:04/16/23 11:04/16/23 11:28 Height: 5 ft 5 in Weight (kg): 81.873 kg Body Mass Index: 30.0 BMI Classification: Obese - NPO Other - Is Patient ?: Yes - Lab Results Current Lab Results: Laboratory Tests 04/16/23 12:00: Sodium 137, Potassium 3.6, Chloride 110, Carbon Dioxide 22, Anion Gap 5.0 L, BUN 8, Creatinine 0.4 L, Estimated GFR (MDRD) 198, Glucose 93, Calcium 9.3, Total Bilirubin 0.2, AST 20, ALT 10, Alkaline Phosphatase 82, Total Protein 6.2 L, Albumin 3.3, Globulin 2.9, Albumin/Globulin Ratio 1.1 04/16/23 12:00: WBC 9.2, RBC 4.27, Hgb 11.8 L, Hct 36.8 L, MCV 86.2, MCH 27.6, MCHC 32.1, RDW 15.8 H, Plt Count 261, MPV 9.3, Neut # (Auto) 5.7, Lymph # (Auto) 2.0, [place] # (Auto) 0.9, Eos # (Auto) 0.2, Baso # (Auto) 0.1, Absolute Nucleated RBC 0.00, Nucleated RBC % 0.0 04/16/23 12:00: Blood Type A POSITIVE, Antibody Screen NEGATIVE Fish Bones: 04/16/23 12:00 04/16/23 12:00 Home Medications and Allergies Active Medications Carboprost Tromethamine (Carboprost Tromethamine 250 Mcg/Ml Amp) 250 mcg IM .ONCE PRN PRN Reason: Hemorrhage Fentanyl (Fentanyl 100 Mcg/2 Ml Vial) 50 mcg IVP Q1H PRN PRN Reason: Severe Pain (score 7-10) Hydralazine HCl (Hydralazine Inj 20 Mg/Ml Vial) 10 mg IVP .ONCE PRN; Protocol PRN Reason: SBP> or= 160 OR DBP> or= 110 Hydralazine HCl (Hydralazine Inj 20 Mg/Ml Vial) 5 - 10 mg IVP Q20M PRN; Protocol PRN Reason: SBP> or= 160 OR DBP> or= 110 Oxytocin/Sodium Chloride (Pitocin/Sodium Chloride) 500 mls @ 999 mls/hr IV PRN PRN; Protocol PRN Reason: POST- HEMORR PREVENTION Tranexamic Acid (Tranexamic 1,000 Mg/100ml-Nacl) 1,000 mg in 100 mls @ 600 mls/hr IV Q30M PRN PRN Reason: EBL >1200mL and within 3hr Lactated Ringer's (Lr) 1,000 mls @ 125 mls/hr IV .Q8H CARLA Last Admin: 04/17/23 05:55 Dose: 125 mls/hr Lactated Ringer's (Lr) 1,000 mls @ 999 mls/hr IV PRN PRN PRN Reason: PER PHYSICIAN ORDER Oxytocin/Sodium Chloride (Pitocin/Sodium Chloride) 500 mls @ 2 mls/hr IV TITR CARLA; Protocol Last Admin: 04/17/23 15:04 Dose: 2 milliunit/min, 2 mls/hr Labetalol HCl (Labetalol 20 Mg/4 Ml Syringe) 20 mg IVP .ONCE PRN; Protocol PRN Reason: SBP> or= 160 OR DBP> or= 110 Labetalol HCl (Labetalol 20 Mg/4 Ml Syringe) 20 - 80 mg IVP Q10M PRN; Protocol PRN Reason: SBP> or= 160 OR DBP> or= 110 Labetalol HCl (Labetalol 20 Mg/4 Ml Syringe) 20 - 40 mg IVP Q10M PRN; Protocol PRN Reason: SBP> or= 160 OR DBP> or= 110 Lidocaine HCl (Lidocaine 1% 20 Ml Mdv) 20 ml ID .ONCE PRN PRN Reason: PERINEAL REPAIR Stop: 04/19/23 11:36 Methylergonovine Maleate (Methylergonovine 0.2 Mg/Ml Vial) 0.2 mg IM .ONCE PRN PRN Reason: Hemorrhage Misoprostol (Misoprostol 200 Mcg Tablet) 600 mcg BC .ONCE PRN PRN Reason: Hemorrhage Misoprostol (Misoprostol 200 Mcg Tablet) 800 mcg NE .ONCE PRN PRN Reason: Hemorrhage Nifedipine (Nifedipine 10 Mg Capsule) 10 - 20 mg PO Q20M PRN; Protocol PRN Reason: SBP> or= 160 OR DBP> or= 110 Oxytocin (Oxytocin 10 Unit/Ml Vial) 10 unit IM .ONCE PRN PRN Reason: Step One if no IV access. Sodium Chloride (Sodium Chloride Flush 0.9% 10 Ml Syringe) 10 ml IVP Q8H CARLA Last Admin: 04/17/23 13:52 Dose: Not Given Sodium Chloride (Sodium Chloride Flush 0.9% 10 Ml Syringe) 10 ml IVP PRN PRN PRN Reason: NEEDED PER PROVIDER ORDERS Last Admin: 04/17/23 15:05 Dose: 10 ml Terbutaline Sulfate (Terbutaline 1 Mg/Ml Vial) 0.25 mg SUBQ .ONCE PRN PRN Reason: Tachystole Folic Acid 1 mg PO DAILY 03/21/23 Pnv No.95/Ferrous Fum/Folic AC [ Tablet] 1 each PO DAILY 03/21/23 sulfaSALAzine [Sulfasalazine] 1,500 mg PO DAILY 03/21/23 Allergies/Adverse Reactions: Allergies Allergy/AdvReac Type Severity Reaction Status Date / Time No Known Drug Allergies Allergy Verified 03/21/23 11:12 Anes History & Medical History - Anesthetic History Anesthesia Complications: reports: No previous complications Family history of Anesthesia Complications: Denies Family history of Malignant Hyperthermia: Denies - Medical History Cardiovascular: reports: Hypertension, Other (gest HTN) Pulmonary: reports: None Gastrointestinal: reports: None Urinary: reports: None Neuro: reports: None Musculoskeletal: reports: Rheumatoid arthritis Blood Disorders: reports: Anemia Smoking Status: Never smoker - Surgical History Orthopedic: reports: Other - Obstetrical History : 1 Parity: 0 Complications: reports: induced HTN, Other (Palpitations) Exam General: Alert, Oriented x3, Cooperative Dental: WNL Mouth Openin Fingerbreadth Neck Mobility: Normal Mallampati classification: II Thyromental Distance: 4-6 cm Respiratory: Lungs clear Cardiovascular: Regular rate Plan Anesthesia Type: Epidural Consent for Procedure(s) Verified and Reviewed: Yes Code Status: Attempt Resuscitation ASA classification: 2-Mild systemic disease Is this case an emergency?: No
--- NOTE | 2023-04-17 20:08 | PROVIDER PROGRESS NOTE ---
Labor Progress Note - Uterine Monitoring Uterine Monitoring Mode: positive: External toco Contraction Frequency (min/apart): 3 Contraction Intensity: positive: Strong Uterine Resting Tone: positive: Soft - Monitoring Monitor Mode: positive: External ultrasound Heart Rate Variability: positive: Moderate (6-25 bmp) Accelerations: positive: Absent Decelerations: positive: None Strip Review: positive: Category I - Vaginal Exam Dilation (in cm): anterior lip Effacement (%): 90 - Labor Progress Note Labor Progress Note/Additional Text: Patient currently on 8 of pitocin. Comfortable with epidural. Beginning to feel pressure.
--- NOTE | 2023-04-17 21:39 | DELIVERY NOTE ---
Delivery Note - Labor Labor: positive: Augmented by ARM, Induced by oxytocin, Other (misoprostol) - Infant Delivery Method Delivery Method: positive: Spontaneous vaginal delivery - Cervical Ripening Method Cervical Ripening Method: positive: Misoprostil - Presentation Presentation: positive: Vertex - Nuchal Cord Nuchal Cord: positive: None - Anesthetic Anesthetic Type: - Amniotic Fluid Description Amniotic Fluid Description: positive: Clear - Episiotomy Type Episiotomy Type: positive: None - Laceration Laceration: positive: 1st degree, Vaginal - Suture Suture Type: positive: Vicryl Suture Size: positive: 3-0, 4-0 - Delivery Outcome Delivery Outcome: positive: Livebirth - [place]: positive: Placed in direct skin contact with mother, [place] used [place] sex: positive: Female - Cord Cord: positive: 3 vessels - Placenta Placenta: positive: Intact, Spontaneous - Estimated Blood Loss Estimated Blood Loss (in cc): 250 - Post Delivery Events Post Delivery Events: positive: No post delivery events
--- NOTE | 2023-04-17 21:41 | PROCEDURE REPORT ---
Hospitalist Procedure Note - Procedure Note Procedure Note: Stage I: Patient is a Presenting for induction of labor secondary to gestational hypertension. Misoprostol given for cervical ripening.Cervical ripening balloon placed and pitocin started. AROM with clear fluid after CRB fell out. FHTs remained reassuring throughout the first stage. Patient received an epidural for anesthesia. Stage II: Female infant was atraumatcally delivered from DAVI position. There was no nuchal cord. The anterior shoulder was delivered without difficulty followed by the posterior shoulder and body. Infant was vigorous at delivery. Infant was bulb suctioned and cord was doubly clamped and cut. was placed on mom. Weight and APGARS pending Stage III: Gentle cord traction and crede maneuver were used. Placenta delivered spontaneously. Placenta was noted to not be intact. 3 vessel cord. Course: Uterine tone was firm with massage after delivery of the placenta. Oxytocin was administered IV. First-degree vaginal laceration repaired with 3-0 and 4-0 Vicryl.Sponge, needle, and instrument counts were correct. EBL: 250 mL
[2023-04-17] MEDS ORDERED: WITCH HAZEL/GLYCERIN 1 PAD TOP PRN (22:45)
[2023-04-17] MEDS ORDERED: HYDROCORTISONE 1% CREAM 28 GM TUBE PR PRN (22:45)
[2023-04-17] MEDS ORDERED: LACTATED RINGERS 1,000 ML IV SCH (23:00)
[2023-04-18] MEDS: IBUPROFEN 600 MG TABLET PO SCH ×4 (00:08→18:22)
[2023-04-18] MEDS: ACETAMINOPHEN 500 MG TABLET PO SCH ×3 (00:08→18:22)
[2023-04-18] MEDS ORDERED: DOCUSATE SODIUM 100 MG CAPSULE PO SCH (09:00)
[2023-04-18] MEDS ORDERED: MEASLES,MUMPS & RUBELLA VACC 0.5 ML VIAL SUBQ ONE (09:21)
--- NOTE | 2023-04-18 09:27 | PROVIDER PROGRESS NOTE ---
Subjective - Prog Note Date Prog Note Date: 04/18/23 Prog Note Time: 09:23 - Subjective Subjective: Patient is day 1 status postnormal spontaneous vaginal delivery with induction secondary to gestational hypertension. Patient is doing well this morning. She is ambulating, tolerating regular diet, spontaneously voiding. Blood pressures have been within normal limits. Objective - Vital Signs/Intake & Output Reviewed Vital Signs: Yes Vital Signs: Vital Signs x48h Temp Pulse Resp BP Pulse Ox 04/18/23 08:00 97.7 F 75 16 113/71 100 04/18/23 04:25 98.6 F 91 115/67 98 04/18/23 01:40 99.7 F 87 19 101/73 99 Intake & Output: Intake & Output 04/15/23 04/16/23 04/17/23 04/18/23 23:59 23:59 23:59 23:59 Intake Total 480 3378.667 782.5 Output Total 175 802 Balance 480 3203.667 -19.5 - Objective General Appearance: positive: No acute distress Respiratory: positive: Breath sounds nml Cardiovascular: positive: Regular rate & rhythm Abdomen: positive: Non-tender (firm fundus below umbilicus) Extremities: positive: Non-tender, No pedal edema - Lab Results Fish Bones: 04/16/23 12:00 04/16/23 12:00 Assessment/Plan - Problem List (1) Vaginal delivery Impression: uncomplicated course Rubella non-immune: MMR BPs have been within normal limits
--- NOTE | 2023-04-19 01:01 | Labor Flowsheet ---
Labor Flowsheet Datetime Report Generated by CPN: 04/19/2023 01:01 Datetime: 04/18/2023 08:14 VITAL SIGNS NBP Sys/Shae/Mean (mmHg): 113 : 71 : 81 Pulse: 77 Datetime: 04/18/2023 04:25 SpO2 (%): 97 Datetime: 04/17/2023 21:31 Stage of : Datetime: 04/17/2023 21:16 LaborFlag: Labor Datetime: 04/17/2023 21:15 UTERINE ACTIVITY Monitor Mode: External Frequency (min): 2-3 Quality: Strong Duration (sec): 60-120 Pattern: Normal: <= 5 Contractions in 10 Minutes Resting Tone (Palpate): Relaxed ASSESSMENT A Monitor Mode: Telemetry Comments: interrupted strip pattern, indeterminate of FHR baseline, occasional maternal HR reading noted STAGE 2 Pushing: Coached on Pushing; No Urge to Push Pushing Position: Pushing with Contractions Pushing Progress: Descent with Pushing Datetime: 04/17/2023 21:08 I/O Interventions: Beard Discontinued Datetime: 04/17/2023 21:04 Provider Reviewed Strip: Yes COMMUNICATION Communication: Provider at Bedside Datetime: 04/17/2023 21:00 Monitor Interventions for UA: [place] Adjusted Pitocin Checklist: At Least 1 Acceleration of 15 bpm x 15 Seconds in 30 Minutes or Adequate Variabi lity; No More than 1 Late Deceleration Occurred in Past 30 Minutes; No More than 2 Variable Decelerat ions > 60 Seconds in Duration and decreasing >60 bpm in 30 minutes; No More than 5 Uterine Contractio ns in 10 Minutes for any 20 Minute Interval; Uterus Palpates Soft between Contractions FHR Baseline Rate : 155 Decelerations: Variable Datetime: 04/17/2023 20:45 Contraction Comments: interrupted strip pattern Actions for Decelerations: Other Datetime: 04/17/2023 20:32 Patient Position/Activity: Semi-Fowlers Datetime: 04/17/2023 20:20 Patient Care Comments: 75 ml u/o Datetime: 04/17/2023 20:13 Temperature (C): 37.6 Datetime: 04/17/2023 20:08 Anesthesia Level Check: T9 Datetime: 04/17/2023 20:02 VAGINAL EXAM Dilatation (cm): 10.0 Effacement (%): 90 Station: 1 Exam by: Dr. Baltes Cervix, Consistency: Soft Vaginal Exam Comments: Anterior lip Datetime: 04/17/2023 20:00 Accelerations: None Datetime: 04/17/2023 19:45 Respirations: 19 Category: Category II MATERNAL ASSESSMENT Level of Consciousness: Drowsy Headache: Denies Breath Sounds, Left: Clear and Equal Breath Sounds, Right: Clear and Equal Nausea/Vomiting: Denies RUQ Epigastric Pain: Denies Datetime: 04/17/2023 19:38 Monitor Interventions for FHR: Ultrasound Adjusted Datetime: 04/17/2023 19:26 Communication Comments: SBAR to RN Isidro Datetime: 04/17/2023 19:15 Variability: Moderate 6-25 bpm Datetime: 04/17/2023 17:52 Temperature Route: Oral Datetime: 04/17/2023 17:36 ANESTHESIA Epidural Procedure: Completed Datetime: 04/17/2023 17:32 Pain Assessment Comments: Nitrous stopped Datetime: 04/17/2023 17:19 PROCEDURE TIME OUT Procedure Verify: Correct Patient Identity; Correct Side and Site are Marked; Accurate Procedure Co nsent Form; Agreement on Procedure to be Done; Correct Patient Position; Addressed Need to Administer Antibiotics or Fluids for Irrigation; Safety Precautions Based on Patient History or Medication Use Anesthesia Comments: timeout Datetime: 04/17/2023 16:58 PATIENT CARE IV/Blood Work: IV Bolus Started Datetime: 04/17/2023 16:41 MEDICATIONS Pitocin (milliunits): Increased to @ 6 Datetime: 04/17/2023 16:30 PAIN Pain Scale: 4 Pain Presence: Intermittent Pain Type: Contraction Pain Location: Abdomen Pain Relief Measures: Pain Medication Given Pain Coping: Requesting Pain Medication or Epidural Datetime: 04/17/2023 16:00 TEACHING Instructional Method: Verbal Related: Hydration; Activity and Rest Teaching Comments: Epidural education Datetime: 04/17/2023 15:14 Membranes Rupture Method: Artificial Amniotic Fluid Color: Bloody Amniotic Fluid Amount: Small Membrane Comments: cervix bloody Datetime: 04/17/2023 15:00 FHR Baseline Changes: No Baseline Change Membrane Status: Intact Oxygen Method: Room Air Datetime: 04/17/2023 14:28 Provider Notified (Name): Dr. Salgado Notification Reason: Status Update; Labor Status; Uterine Activity Datetime: 04/17/2023 10:12 Hygiene: Underpad Changed; Linens Changed Datetime: 04/17/2023 10:10 Comfort Measures: Hot Shower/Tub/Spa; Family Support Datetime: 04/17/2023 08:01 Plan of Care: Plan of Care Discussed Labor/Induction: Cervical Ripening Datetime: 04/17/2023 06:32 Vaginal Bleeding: Scant Datetime: 04/17/2023 03:04 Cervix, Position: Posterior Cervical Ripening Agents: Beard Balloon; Cytotec @ Datetime: 04/16/2023 19:36 Pain Management: Comfort Measures Datetime: 04/16/2023 19:31 DTR's/Clonus: No Clonus Datetime: 04/09/2023 16:55 Bedside Blood Glucose: 111 Datetime: 03/26/2023 14:52 Membranes Ruptured Date/Time: 04/17/2023 15:14 Amniotic Fluid Odor: None
--- NOTE | 2023-04-19 03:33 | DISCHARGE SUMMARY ---
Discharge Summary Admit Date: 04/17/23 Discharge Date: 04/18/23 Discharging Provider: Damian Primary Care Provider: Lino Code Status: Attempt Resuscitation Condition at Discharge: Stable Discharge Disposition: 01 Home, Self Care - DIAGNOSES Admission Diagnoses: Gestational hypertension - HPI History of Present Illness: Patient is a 20-year-old G1, P0 presented at 37 weeks and 4 days for induction of labor secondary to gestational hypertension. - HOSPITAL COURSE Hospital Course: Stage I: Patient is a Presenting for induction of labor secondary to gestational hypertension. Misoprostol given for cervical ripening.Cervical ripening balloon placed and pitocin started. AROM with clear fluid after CRB fell out. FHTs remained reassuring throughout the first stage. Patient received an epidural for anesthesia. Stage II: Female infant was atraumatcally delivered from DAVI position. There was no nuchal cord. The anterior shoulder was delivered without difficulty followed by the posterior shoulder and body. Infant was vigorous at delivery. was bulb suctioned and cord was doubly clamped and cut. was placed on mom. Weight and APGARS pending Stage III: Gentle cord traction and crede maneuver were used. Placenta delivered spontaneously. Placenta was noted to not be intact. 3 vessel cord. Course: Uterine tone was firm with massage after delivery of the placenta. Oxytocin was administered IV. First-degree vaginal laceration repaired with 3-0 and 4-0 Vicryl.Sponge, needle, and instrument counts were correct. EBL: 250 mL Patient had an uncomplicated course and was discharged home on day 1. She was counseled on signs and symptoms of preeclampsia. She has close follow-up in the office. - ALLERGIES Allergies/Adverse Reactions: Allergies Allergy/AdvReac Type Severity Reaction Status Date / Time No Known Drug Allergies Allergy Verified 03/21/23 11:12 - MEDICATIONS Home Medications: Ambulatory Orders Medication Instructions Recorded Confirmed Folic Acid 1 mg PO DAILY 03/21/23 03/21/23 Pnv No.95/Ferrous Fum/Folic AC 1 each PO DAILY 03/21/23 03/21/23 [ Tablet] sulfaSALAzine [Sulfasalazine] 1,500 mg PO DAILY 03/21/23 03/21/23 - PHYSICAL EXAM AT DISCHARGE General Appearance: positive: No acute distress Respiratory: positive: Breath sounds nml Cardiovascular: positive: Regular rate & rhythm Abdomen: positive: Non-tender (firm fundus below the umbilicus) Extremities: positive: No pedal edema - LABS Result Diagrams: 04/16/23 12:00 04/16/23 12:00
[2023-04-19 10:59] VITALS: BP 117/71; O2SAT 100
== END 2023-04-18 23:45 | disposition home or self-care (01) | DRG 807 ==
LOC: WFO 11:09 → FBP 11:11 → WFO 11:35 → FBP 11:36 → OBSVTOIN 04-17 14:15 → FBP 04-18 10:01
PROVIDERS: ADMIT Obstetrics & Gynecology; ATTEND Obstetrics & Gynecology Obstetrics
PROC: 0HQ9XZZ Repair Perineum Skin, External Approach (ICD-10-PCS; principal; 2023-04-17)
PROC: 10E0XZZ Delivery of Products of Conception, External Approach (ICD-10-PCS; 2023-04-17)
PROC: 0U7C7ZZ Dilation of Cervix, Via Natural or Artificial Opening (ICD-10-PCS; 2023-04-17)
PROC: 3E0DXGC Introduction of Other Therapeutic Substance into Mouth and Pharynx, External Approach (ICD-10-PCS; 2023-04-17)
PROC: 3E033VJ Introduction of Other Hormone into Peripheral Vein, Percutaneous Approach (ICD-10-PCS; 2023-04-17)
PROC: 10907ZC Drainage of Amniotic Fluid, Therapeutic from Products of Conception, Via Natural or Artificial Opening (ICD-10-PCS; 2023-04-17)
DX: O13.4 Gestational [pregnancy-induced] hypertension without significant proteinuria, complicating childbirth (principal); Z37.0 Single live birth; O70.0 First degree perineal laceration during delivery; Z3A.37 37 weeks gestation of pregnancy; O99.42 Diseases of the circulatory system complicating childbirth; I49.3 Ventricular premature depolarization; O99.02 Anemia complicating childbirth; D50.9 Iron deficiency anemia, unspecified
CPT/HCPCS: 80053; 82570; 84156; 85025; 86850; 86900; 86901; A9270; J7120